=== PATIENT | female | born 1955 | race Two or more races ===

== ENCOUNTER → 2021-06-10 | Outpatient (CLI) | payer MEDICARE, OTHER ==
--- NOTE | 2021-06-10 14:00 | RAD ---
Complete abdominal ultrasound 06/10/2021 INDICATION: Generalized abdominal pain. COMPARISON STUDY: Abdominal ultrasound August 14, 2020 Discussion: Ultrasound evaluation of the abdomen was performed. Static images are submitted to PACS. Visualized portions of pancreas are unremarkable. Visualized portions of the aorta and IVC are unrema rkable. Portions of the liver appears be obscured. Liver appears be normal in size measuring 2.6 cm l ongitudinally. There is a 5.7 cm right hepatic cyst, which is similar to comparison study. Sludge [place] ears be present within the dependent portion of the gallbladder. The gallbladder is otherwise unremar kable without evidence of wall thickening or cholelithiasis. The common bile duct is nondilated at 2 mm. The right kidney somewhat poorly visualized but grossly unremarkable appearance measuring 9.7 cm in length. Spleen is normal in size measuring 8.5 cm. Left kidney is unremarkable in appearance measu ring 10 cm in length. IMPRESSION: 1. Grossly stable appearance of 5.7 cm right hepatic cyst. 2. Sludge within the gallbladder lumen 3. No acute intra-abdominal abnormality Electronically signed by: Neeraj Toure MD (06/10/2021 8:29 AM) [id number]
== END ==
LOC: US 07:14
PROVIDERS: ATTEND Specialist
DX: K76.89 Other specified diseases of liver (principal)
CPT/HCPCS: 76700

== ENCOUNTER → 2021-12-26 | Outpatient (CLI) | payer MEDICARE, OTHER ==
--- NOTE | 2021-12-29 11:35 | RAD ---
MRCP W/O CONTRAST History: Abnormal ultrasound. History of cholecystectomy. Technique: Multiplanar, multi sequential noncontrast MR imaging was performed of abdomen. 3-D MRCP po stprocessing was performed. Comparison: Ultrasound 12/19/2021, 06/10/2021. Findings: The liver contains multiple circumscribed T2 hyperintense benign cysts including a 5.3 x 5.1 x 5.4 cm cyst adjacent to the gallbladder fossa. Numerous additional cysts, largest measuring 2.3, 1.1, 1.1 a nd 1.0 cm. In the posterior aspect of segment a 6-7, there is a 0.8 cm T1 hypointense, T2 slightly hy perintense, DWI hyperintense, ADC intermediate lesion, most consistent with hemangioma. There are postsurgical changes from cholecystectomy with metallic artifact in the cholecystectomy bed . The common bile duct is normal in caliber without evidence of obstruction. The pancreas, spleen and adrenal glands are unremarkable. There are a few benign subcentimeter left r enal cysts. Lung bases are clear. Visualized gastrointestinal tract is unremarkable. Soft tissues are within normal limits. Normal marrow signal. Impression: 1. Multiple benign hepatic cysts, largest measuring 5.4 cm diameter. 2. Status post cholecystectomy without evidence of biliary obstruction. Electronically signed by: Dre Saini MD (12/29/2021 11:33 AM) [id number]
== END ==
LOC: MRI 13:15
PROVIDERS: ATTEND Internal Medicine Gastroenterology
DX: K76.89 Other specified diseases of liver (principal); N28.1 Cyst of kidney, acquired; Z90.49 Acquired absence of other specified parts of digestive tract
CPT/HCPCS: 74181